=== PATIENT | male | born 1985 | race Caucasian/White ===

== ENCOUNTER → 2019-03-02 | Outpatient (CLI) | payer OTHER ==
--- NOTE | 2019-03-02 14:04 | Diagnostic Imaging Report ---
PROCEDURE: CT urinary tract, rule out kidney stone. TECHNIQUE: Multiple contiguous axial images were obtained through the abdomen and pelvis without the use of intravenous contrast. Auto Exposure Controls were utilized during the CT exam to meet ALARA standards for radiation dose reduction. INDICATION: Bilateral flank pain. Hematuria. History of kidney stones. COMPARISON: None FINDINGS: Included portions of the lung bases are clear. CT ABDOMEN: Normal appendix is identified. Small bowel loops are nondistended. Multiple punctate nonobstructive renal calculi are identified, bilaterally. Additionally, there is a 4-5 mm calculus within the distal left ureter (image #115, series 3). As a result, there is minimal proximal hydroureteronephrosis. No ureteral calculi are seen on the right. Additionally, there is no hydronephrosis or other evidence of obstruction on the right. No renal mass type lesions are seen on either side on this noncontrast exam. The adrenal glands, spleen, pancreas, and liver have an unremarkable noncontrast CT appearance. There is no loculated fluid collection, free fluid, nor free air within the abdomen. There is slight stranding of the central mesenteric fat with a few prominent, yet subcentimeter mesenteric lymph nodes. Otherwise, no abnormal mesenteric or retroperitoneal adenopathy is seen. Bony structures show no acute abnormalities. CT PELVIS: Urinary bladder is unopacified. No calculi are seen within the urinary bladder. There is no loculated fluid collection, free fluid, nor free air within the pelvis. No abnormal lymph nodes are identified. Bony structures show no acute abnormalities. IMPRESSION: 1. Small 4-5 mm calculus within the distal left ureter resulting in minimal proximal hydroureteronephrosis. 2. Multiple additional bilateral nonobstructive renal calculi. 3. Subtle stranding of the central mesenteric fat with a few prominent appearing, yet subcentimeter mesenteric lymph nodes. Findings are nonspecific, but can be seen with mesenteric adenitis or panniculitis. Dictated by: Dictated on workstation # [id number]
== END ==
LOC: RAD 12:11
PROVIDERS: ATTEND Nurse Practitioner Family
DX: N13.2 Hydronephrosis with renal and ureteral calculous obstruction (principal)
CPT/HCPCS: 74176

== ENCOUNTER 2019-03-05 11:05 | Outpatient (CLI) | payer OTHER ==
[~2019-03-05] VITALS: Ht 182.9 cm; Wt 119.3 kg
[2019-03-05 11:31] LABS: BASOPHILS # (AUTO) 0.1 10^3/uL (0.0-0.1); BASOPHILS % (AUTO) 1 % (0-10); EOSINOPHILS # (AUTO) 0.3 10^3/uL (0.0-0.3); EOSINOPHILS % (AUTO) 4 % (0-10); HEMATOCRIT 46 % (40-54); LYMPHOCYTES # (AUTO) 1.3 X 10^3 (1.0-4.0); LYMPHOCYTES % (AUTO) 15 % (12-44); MEAN CORPUSCULAR HEMOGLOBIN 32 PG (25-34); MEAN CORPUSCULAR HGB CONC 35 G/DL (32-36); MEAN CORPUSCULAR VOLUME 91 FL (80-99); MEAN PLATELET VOLUME 9.3 FL (7.4-10.4); MONOCYTES # (AUTO) 0.5 X 10^3 (0.0-1.0); MONOCYTES % (AUTO) 6 % (0-12); NEUTROPHILS # (AUTO) 6.5 X 10^3 (1.8-7.8); NEUTROPHILS % (AUTO) 75 % (42-75); PLATELET COUNT 258 10^3/uL (130-400); RED CELL DISTRIBUTION WIDTH 13.4 % (10.0-14.5); WHITE BLOOD COUNT 8.6 10^3/uL (4.3-11.0)
[2019-03-05 11:49] LABS: BUN/CREATININE RATIO 7; CALCIUM 10.1 MG/DL (8.5-10.1); CARBON DIOXIDE 22 MMOL/L (21-32); CHLORIDE 105 MMOL/L (98-107); CREATININE SERUM 1.35 MG/DL (0.60-1.30); GFR ESTIMATED > 60; GLUCOSE 103 MG/DL (70-105); PHOSPHORUS 1.8 MG/DL (2.3-4.7); SODIUM 139 MMOL/L (135-145); URIC ACID 7.2 MG/DL (2.6-7.2)
[2019-03-05] MEDS ORDERED: CIPR-225 PO (11:58)
[2019-03-05] MEDS ORDERED: TAMS0.4C98 PO (11:58)
[2019-03-05] MEDS ORDERED: HYDR-3870 PO (11:58)
== END 2019-03-05 11:25 | disposition home or self-care (01) ==
LOC: PREOP 11:05
PROVIDERS: ATTEND Urology
DX: Z01.812 Encounter for preprocedural laboratory examination (principal); Z11.2 Encounter for screening for other bacterial diseases; N20.1 Calculus of ureter; N20.0 Calculus of kidney
CPT/HCPCS: 36415; 80048; 83970; 84100; 84550; 85025; 87081

== ENCOUNTER 2019-03-09 16:06 | Outpatient (RCR) | payer OTHER ==
[~2019-03-09 16:06] MED LIST: CIPR-225 PO; HYDR-3870 PO; TAMS0.4C98 PO
== END 2019-06-07 | disposition home or self-care (01) ==
LOC: LAB 16:06
PROVIDERS: ATTEND Urology
DX: N20.9 Urinary calculus, unspecified (principal)
CPT/HCPCS: 36415; 82140; 82340; 82507; 82570; 83735; 83945; 83986; 84105; 84133; 84300; 84392; 84560; 88300